=== PATIENT | female | born 1980 | race Caucasian/White ===

== ENCOUNTER → 2020-10-18 | Outpatient (CLI) | payer BC ==
[~2020-10-18] MED LIST: ASPIRIN E.C. 8181 MG PO; FLEXERIL 1010 MG/TAB PO; HCTZ 25MG TAB25 MG PO; PAMELOR50 MG PO; SYNTHROID 0.0.025 MG PO
== END ==
LOC: MC.RAD 15:26
DX: Z12.31 Encounter for screening mammogram for malignant neoplasm of breast (principal); Z80.3 Family history of malignant neoplasm of breast

== ENCOUNTER → 2020-11-06 | Outpatient (CLI) | payer BC ==
[~2020-11-06] VITALS: Ht 157.5 cm; Wt 93.6 kg
[2020-11-06 13:50] VITALS: BP 140/88; PULSE 92
[2020-11-06 14:20] VITALS: BP 133/73; PULSE 59
[2020-11-06 14:30] VITALS: BP 138/80; PULSE 88
== END ==
LOC: COL.RAD 13:30
DX: R59.0 Localized enlarged lymph nodes (principal)